=== PATIENT | male | born 1965 | race Caucasian/White ===

== ENCOUNTER → 2016-10-26 | Outpatient (CLI) | payer OTHER ==
--- NOTE | 2016-10-28 14:07 | PE ---
Nuclear medicine PET/CT HISTORY: Hodgkin's lymphoma Patient received 15.7 mCi F-18 FDG intravenously and delayed scanning was performed from the skull ba se to the mid thighs. Localization and attenuation correction CT scan was performed. Exam is compared to previous exam dated 20 April 2016 Neck and chest: No evident adenopathy. No suspicious lung nodule. Evidence of old granulomatous disea se again noted. No suspicious hypermetabolic uptake. Abdomen pelvis: No retroperitoneal adenopathy. Multiple calcifications present within the spleen. No hypermetabolic uptake. No ascites. Urinary bladder shows a thickened wall, prostate calcifications ar e present, prostate is enlarged. No inguinal adenopathy. Osseous structures: At the insertion along the level of the greater trochanter hypermetabolic uptake is present which likely is corresponding to inflammatory change, correlate for trochanteric bursitis. IMPRESSION: No suspicious hypermetabolic uptake. Correlate for left trochanteric bursitis
== END | disposition home or self-care (01) ==
LOC: RADPETMAIN 07:20
PROVIDERS: ATTEND Internal Medicine Hematology & Oncology
DX: C85.90 Non-Hodgkin lymphoma, unspecified, unspecified site (principal)
CPT/HCPCS: 78815; A9552

== ENCOUNTER 2017-07-04 18:44 | Emergency (ER) | payer OTHER ==
[2017-07-04] MEDS ORDERED: DIPH,PERTUS(ACELL)TETVAC-LF 0.5 ML VIAL IM ONE (19:21)
[2017-07-04] MEDS ORDERED: CHLOROPROCAINE 3% 30 MG/ML 20 ML VIAL MISCELLANE PRN (19:26)
--- NOTE | 2017-07-04 19:39 | XR ---
EXAMINATION TYPE: XR finger LT DATE OF EXAM: 07/04/2017 COMPARISON: NONE HISTORY: Trauma and laceration TECHNIQUE: 3 views FINDINGS: I see no fracture nor dislocation. There is no sign of a foreign body. Joint spaces appear normal. IMPRESSION: Negative left thumb exam
--- NOTE | 2017-07-04 19:52 | ED ---
General Adult HPI - General Chief complaint: Wound/Laceration Stated complaint: L hand laceration Time Seen by Provider: 07/04/17 19:00 Source: patient, RN notes reviewed Mode of arrival: ambulatory Limitations: no limitations - History of Present Illness Initial comments: This is a 52-year-old male who presents to the emergency department with chief complaint of left thumb laceration. Patient states that approximately 40 minutes prior to arrival he was using a band saw. He was making wood card holders. He states that the saw blade is recently new. He states that he cut the palmar surface of his left thumb. He states he feels like it went down to the bone. He is unsure whether he is up-to-date with his tetanus vaccination. Denies fever, chills, chest pain, shortness of breath, abdominal pain, nausea or vomiting, constipation or diarrhea, dysuria or hematuria, headache or vision changes. - Related Data Home Medications Medication Instructions Recorded Confirmed Ascorbic Acid [Vitamin C] 500 mg PO DAILY 12/07/14 05/01/16 Cholecalciferol [Vitamin D3] 400 unit PO DAILY 12/07/14 05/01/16 Fish Oil/Dha/Epa [Fish Oil 1,200 2 cap PO DAILY 12/07/14 05/03/16 mg Fish Oil] L.acidoph/B.long/L.plant/B.lac 1 tab PO DAILY 12/07/14 05/01/16 [Probiotic Acidophilus Beads] Selenium 100 mcg PO DAILY 12/07/14 05/01/16 Vitamin B Complex 1 tab PO DAILY 12/07/14 05/01/16 Zinc 50 mg PO DAILY 12/07/14 05/01/16 Omeprazole 20 mg PO DAILY 05/01/16 05/03/16 Allergies Allergy/AdvReac Type Severity Reaction Status Date / Time lidocaine Allergy Chest Pain Verified 07/04/17 18:55 PRE MED PRIOR TO ANESTHESIA AdvReac AGITATED Uncoded 07/04/17 18:55 Review of Systems ROS Statement: Those systems with pertinent positive or pertinent negative responses have been documented in the HPI. ROS Other: All systems not noted in ROS Statement are negative. 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 Past Psychological History: No Psychological Hx Reported Smoking Status: Former smoker Past Alcohol Use History: None Reported Past Drug Use History: None Reported - Past Family History Father Family Medical History: CVA/TIA, Diabetes Mellitus Mother Family Medical History: Cancer Additional Family Medical History / Comment(s): HEART PROBLEMS General Exam - General Exam Comments Initial Comments: General: Awake and alert, well-developed; in no apparent distress. is at bedside. HEENT: Head atraumatic, normocephalic. Pupils are equal, round and reactive to light. Extraocular movements intact. Neck: Supple. Normal ROM. Cardiovascular: Regular rate and rhythm. No murmurs, rubs or gallops. Chest symmetrical. Respiratory: Lungs clear to auscultation bilaterally. No wheezes, rales or rhonchi. Normal respiratory effort with no use of accessory muscles. Musculoskeletal: Patient has normal active and passive range of motion of left thumb. Sensation is intact. Radial pulses are 2+ equal and palpable bilaterally. Skin: Isabel[place], warm and dry without rashes. There is an approximately 2.0 cm crescent-shaped laceration at the palmar surface of the left thumb overlying the IP joint. Bleeding is controlled. Neurological: Alert and oriented x3. CN II-XII grossly intact. Speech is fluent and answers are appropriate. No focal neuro deficits. Psychiatric: Normal mood and affect. No overt signs of depression or anxiety noted. Limitations: no limitations Course Vital Signs 07/04/17 07/04/17 18:52 20:33 Temperature 97.2 F L 97.7 F Pulse Rate 80 84 Respiratory 18 16 Rate Blood Pressure 137/80 137/87 O2 Sat by Pulse 95 98 Oximetry Procedures - Laceration Laceration #1 Consent Obtained: verbal consent Indication: laceration Site: hand (left thumb ) Size (cm): 2 Description: flap (crescent-shaped) Depth: simple, single layer Anesthesia Technique: nerve block (nesacaine ) Pre-repair: wound explored, irrigated extensively, deep structures intact Type of Sutures: nylon Size of Sutures: 5-0 Number of Sutures: 5 Technique: simple, interrupted Patient Tolerated Procedure: well, no complications Medical Decision Making - Medical Decision Making This is a 51-year-old male who presents to the emergency department with chief complaint of left thumb laceration. X-ray revealed no acute abnormalities. Patient has full range of motion and is neurovascularly intact. 5 sutures were placed and patient tolerated well without complication. Patient stated that he has a documented ALLERGY to lidocaine. I spoke with pharmacy who recommended the use of Nesacaine. Pharmacist says that Nesacaine is used often in the [employer] with patients who have a lidocaine ALLERGY. Nesacaine was used and patient tolerated well. No signs of ALLERGIC reaction. Patient was made up-to-date with tetanus vaccination. I offered antibiotics to patient to prevent any infection and he declines, stating that the blade was fairly new. Strongly advised him to return to the emergency department if any signs of infection should arise. Patient was made up-to-date with his tetanus vaccination. He will be discharged home. Recommended removal of sutures in 10-14 days either here at the emergency department or with his primary care provider. Patient is in agreement with plan and voiced understanding. All questions were answered. - Radiology Data X-ray finger left thumb findings: I see no fracture no dislocation. There is no sign of a foreign body. Joint spaces appear normal. Impression: Negative left thumb exam. Disposition Clinical Impression: Finger laceration Disposition: HOME SELF-CARE Condition: Good Instructions: Finger Laceration (ED) Additional Instructions: Please have sutures removed in 10-14 days either here at the emergency department or with your primary care provider. Please monitor for any signs of infection including increased tenderness, warmth or redness. May take Motrin or Tylenol as needed for pain and inflammation. Please follow up with primary care provider within 1-2 days. Return to emergency department if symptoms should worsen or any concerns arise. Referrals: Christoph Hernandez MD [Primary Care Provider] - 1-2 days Time of Disposition: 20:24
[2017-07-04 20:34] VITALS: BP 137/87; PULSE 84; RESP 16; TEMP 97.7
== END 2017-07-04 20:33 | disposition home or self-care (01) ==
LOC: EC 18:44
DX: S61.012A Laceration without foreign body of left thumb without damage to nail, initial encounter (principal); K21.9 Gastro-esophageal reflux disease without esophagitis; I10 Essential (primary) hypertension; Z87.891 Personal history of nicotine dependence; Z79.899 Other long term (current) drug therapy; Z88.8 Allergy status to other drugs, medicaments and biological substances; Z23 Encounter for immunization; W31.2XXA Contact with powered woodworking and forming machines, initial encounter
CPT/HCPCS: 73140; 90715; 99283; 12001; 90471; J2400

== ENCOUNTER → 2017-10-29 | Outpatient (CLI) | payer BC ==
--- NOTE | 2017-10-30 16:42 | CT ---
EXAMINATION TYPE: CT ChestAbdPelvis w con DATE OF EXAM: 10/29/2017 COMPARISON: PET/CT CT 10/26/2016, 04/20/2016 HISTORY: 51-year-old male History of lymphoma, observe for mets. TECHNIQUE: Contiguous axial scanning of the chest, abdomen, and pelvis performed with IV Contrast, pa tient injected with 100 mL of Isovue 300. Delayed kidney images could not be obtained as the patient began vomiting 1 minute after the initial scan. Coronal/sagittal reconstructions performed. CT DLP: Unable to generate due to technical error Automated exposure control for dose reduction was used. FINDINGS: CHEST: Heart is normal size without pericardial effusion. Aorta normal caliber with conventional vessel branching anatomy. Calcified nonenlarged mediastinal lymph nodes are present. No thoracic lymphadenopathy by CT size cri teria. Stable prominent subpleural fat along the peripheral lung bases with some adjacent pleural parenchyma l scarring. Calcified granuloma anterior left upper lobe. Mild diffuse bronchial wall thickening sugg estive of bronchitis or chronic asthma. No consolidation or pleural effusion. ABDOMEN: Tiny hiatal hernia. No focal liver lesion or biliary ductal dilatation. Portal venous system is patent. Gallbladder, adrenal glands, kidneys, and pancreas appear within normal limits. Multiple calcified gr anulomas in the spleen. Small anterior splenule. No dilated small bowel, free fluid, or free air. Scattered nonenlarged mesenteric lymph nodes are present. No mesenteric or retroperitoneal lymphadeno elpidio. Mild stool burden. No pericolonic inflammatory change. Pelvis: Bladder is urine distended. Prostate gland measures 4.6 cm wide with central calcifications. No abnor mal fluid collection in the pelvis or pelvic lymphadenopathy seen. Bones: Mild degenerative changes of the hips. Degenerative changes at the SI joints and degenerative disc di sease L5-S1. IMPRESSION: 1. STABLE EXAM. NO SUSPICIOUS LYMPHADENOPATHY TO SUGGEST RECURRENT DISEASE. 2. PRIOR GRANULOMATOUS DISEASE.
== END | disposition home or self-care (01) ==
LOC: RADCTMAIN 16:45
PROVIDERS: ATTEND Internal Medicine Hematology & Oncology
DX: C81.10 Nodular sclerosis Hodgkin lymphoma, unspecified site (principal); Z88.4 Allergy status to anesthetic agent
CPT/HCPCS: 71260; 74177; Q9967

== ENCOUNTER → 2018-09-09 | Outpatient (CLI) | payer BC ==
--- NOTE | 2018-09-09 17:12 | CT ---
EXAMINATION TYPE: CT ChestAbdPelvis w con DATE OF EXAM: 09/09/2018 INDICATION: Follow up for lymphoma. COMPARISON: 10/29/2017 CT DLP: 1307.5 mGycm CONTRAST: Performed with Oral Contrast and with IV Contrast, patient injected with 100ml mL of Isovue 300. TECHNIQUE: Axial images at 5 mm thick sections. Reconstructed images in the coronal plane. Delayed images through the kidneys. FINDINGS: CT CHEST: Portion of the thyroid visualized is normal. There is a 1.2 cm calcification in the anterior superior left upper lobe. This was present previously . No enlarged mediastinal or hilar adenopathy is evident. Few calcified lymph nodes may be present. The ascending aorta diameter at the level of the main pulmonary artery is 3.4 cm. The main pulmonary artery diameter at the bifurcation is 2.[address] ABDOMEN: No suspicious periaortic or retrocaval adenopathy is evident. No celiac axis or portal ad enopathy is evident. Liver: Normal Spleen: Possible calcified granuloma are within the spleen Pancreas: Normal Adrenal glands: The adrenal glands are normal. Gallbladder: Normal Kidneys: No masses are evident. No hydronephrosis is present. No cysts are present. Delayed images were obtained through the kidneys, which remain unremarkable. Aorta: Vascular calcification is within the aorta. Inferior vena cava: Normal. CT PELVIS: No suspicious obturator canal or iliac adenopathy is evident. Loops of bowel within the abdomen and pelvis are normal. There are loops of bowel which are incom pletely distended or lack oral contrast limiting their evaluation. Some fecal debris is within the co speedy. Appendix: Not identified. Urinary bladder: Normal. Genitourinary structures: Prostate contains calcification. Osseous structures: No suspicious lytic or sclerotic lesions. IMPRESSIONS: 1. No significant enlarged adenopathy is evident.
== END | disposition home or self-care (01) ==
LOC: RADCTMAIN 12:43
PROVIDERS: ATTEND Internal Medicine Hematology & Oncology
DX: C81.10 Nodular sclerosis Hodgkin lymphoma, unspecified site (principal); Z88.4 Allergy status to anesthetic agent
CPT/HCPCS: 71260; 74177; Q9967

== ENCOUNTER → 2019-09-18 | Outpatient (CLI) | payer BC ==
--- NOTE | 2019-09-20 08:37 | CT ---
EXAMINATION TYPE: CT ChestAbdPelvis w con DATE OF EXAM: 09/18/2019 COMPARISON: 09/09/2018 HISTORY: Hodgkins disease CT DLP: 2160 mGycm CONTRAST: CT scan of the chest, abdomen and pelvis is performed with Oral Contrast and with IV Contrast, patien t injected with 100 ml mL of Isovue 300. CT Chest: LUNGS: The lungs are clear and free of infiltrate or atelectasis. No pulmonary nodule or mass is det ected. Ossified granuloma left upper lobe unchanged. No pleural effusion or CT evidence of interstit ial lung disease. MEDIASTINUM: Thoracic aorta is of normal caliber. The heart is not enlarged. No evidence for media stinal mass or adenopathy. Calcified lymph nodes are redemonstrated. HILAR STRUCTURES: No evidence for mass. No hilar adenopathy is appreciated. OTHER: No significant abnormality. CONTRAST CT ABDOMEN AND PELVIS FINDINGS: LIVER/GB: No calcified gallstones. No space occupying hepatic lesion. Biliary tree is of normal ca liber. PANCREAS: No inflammation. No distinct mass. SPLEEN: No splenic enlargement. No lesion seen. Splenic granulomas identified. ADRENALS: No nodule. No thickening. KIDNEYS/BLADDER: No hydronephrosis. No nephrolithiasis. No disctinct renal mass. BOWEL: Normal appendix. Normal bowel caliber. No inflammation. GENITAL ORGANS: No gross abnormality. LYMPH NODES: No greater than 1cm abdominal or pelvic lymph nodes are appreciated. AORTA: No significant abnormality. OSSEOUS STRUCTURES: No significant abnormality is seen. OTHER: No significant additional abnormality is seen. IMPRESSION: 1. No evidence for adenopathy within the chest abdomen or pelvis.
== END | disposition home or self-care (01) ==
LOC: RADCTMAIN 09:39
PROVIDERS: ATTEND Internal Medicine Hematology & Oncology
DX: C81.10 Nodular sclerosis Hodgkin lymphoma, unspecified site (principal); Z88.4 Allergy status to anesthetic agent
CPT/HCPCS: 71260; 74177; Q9967

== ENCOUNTER → 2020-09-19 | Outpatient (CLI) | payer BC ==
[2020-09-19 10:00] LABS: African American GFR (CKD) >90 (>60 ml/min/1.73 sqM); Blood Urea Nitrogen 22 mg/dL (9-20); Non-African American GFR(CKD) >90 (>60 ml/min/1.73 sqM)
--- NOTE | 2020-09-19 11:07 | CT ---
EXAMINATION TYPE: CT ChestAbdPelvis w con DATE OF EXAM: 09/19/2020 COMPARISON: 09/18/2019 and 09/09/2018 HISTORY: 54-year-old male Lymphoma TECHNIQUE: Contiguous axial scanning of the chest, abdomen, and pelvis performed with IV Contrast, pa tient injected with 100 mL of Isovue 300. Delayed images through the kidneys were obtained. Coronal/s agittal reconstructions performed. CT DLP: 2455.2 mGycm Automated exposure control for dose reduction was used. FINDINGS: CHEST: The heart is normal size without pericardial effusion. Upper descending thoracic aorta is ectatic at 3.2 cm. Mild atherosclerotic arch calcifications. Conve ntional arch vessel branching anatomy. Calcified mediastinal and left hilar lymph nodes compatible with prior granulomatous disease. No thor acic lymphadenopathy by CT size criteria. Benign calcified granuloma anterior left upper lobe. Patchy left basilar opacity remains unchanged from 09/18/2019 suggesting pleural parenchymal scarring. There is some hazy dependent atelectasis at the right base. Otherwise, no consolidation or pleural effusion. ABDOMEN: Small hiatal hernia. Liver enlarged at 21.9 cm. No focal liver lesion or biliary ductal dilatation. Portal venous system i s patent. Gallbladder, adrenal glands, kidneys, and pancreas appear within normal limits. Numerous calcified granulomas redemonstrated within the spleen compatible with prior granulomatous di sease. No dilated small bowel, free fluid, or free air. No mesenteric or retroperitoneal lymphadenopathy. Oral contrast has progressed to the distal sigmoid. There is mild stool burden. No pericolonic inflam matory change. Mild to moderate atherosclerotic calcifications infrarenal abdominal aorta. Mild fusiform ectasia inf rarenal segment and 2.6 cm and mild ectasia proximal right common iliac artery at 1.8 cm. PELVIS: Bladder is urine distended. Patulous left inguinal canal. Central prostatic calcifications. Prostate gland measures 4.7 cm wide. Multiple pelvic phlebolith. No abnormal fluid collection in the pelvis or pelvic lymphadenopathy. BONES: Mild degenerative change of the hips. Degenerative bridging ankylosis of the bilateral SI joints. Fac et arthropathy mid to lower lumbar spine. Accentuated upper thoracic kyphosis. Anterior endplate spon dylosis mid to lower thoracic spine. Advanced degenerative disc disease L5-S1. Moderate to severe ty roforaminal stenosis on the right at L5-S1. No osseous destructive process. IMPRESSION: 1. NO SUSPICIOUS LYMPHADENOPATHY OR MASS TO SUGGEST RECURRENT LYMPHOMA. 2. EVIDENCE OF PRIOR GRANULOMATOUS DISEASE IN THE CHEST AND SPLEEN. 3. SMALL HIATAL HERNIA AND UNCHANGED HEPATOMEGALY AT 21.9 CM.
== END | disposition home or self-care (01) ==
LOC: RADCTMAIN 08:12
PROVIDERS: ATTEND Internal Medicine Hematology & Oncology
DX: Z03.89 Encounter for observation for other suspected diseases and conditions ruled out (principal); C81.10 Nodular sclerosis Hodgkin lymphoma, unspecified site; K44.9 Diaphragmatic hernia without obstruction or gangrene; R16.0 Hepatomegaly, not elsewhere classified; Z87.09 Personal history of other diseases of the respiratory system; Z87.898 Personal history of other specified conditions; Z88.4 Allergy status to anesthetic agent
CPT/HCPCS: 82565; 84520; 71260; 74177; 36415; Q9967 ×2

== ENCOUNTER → 2021-05-22 | Outpatient (CLI) | payer BC ==
--- NOTE | 2021-05-23 07:45 | US ---
EXAMINATION TYPE: US pelvic limited DATE OF EXAM: 05/22/2021 COMPARISON: NONE CLINICAL HISTORY: Pain. Ultrasound of the left groin was performed. There is no evidence for hernia mass or fluid collection. Comparison the right groin reveals no asymmetry. IMPRESSION: Negative
== END | disposition home or self-care (01) ==
LOC: RADUSWWP 10:21
PROVIDERS: ATTEND Family Medicine
DX: R10.2 Pelvic and perineal pain (principal)
CPT/HCPCS: 76857

== ENCOUNTER → 2022-10-17 | Outpatient (CLI) | payer OTHER ==
[2022-10-17 22:56] LABS: African American GFR (CKD) 114.9 (60.0-200.0); Anion Gap 11.1 mmol/L (10.00-18.00); BUN/Creat Ratio 28.63 Ratio (12.00-20.00); Blood Urea Nitrogen 22.9 mg/dL (9.0-27.0); Calcium 9.8 mg/dL (8.7-10.3); Carbon Dioxide 24.9 mmol/L (20.0-27.5); Non-African American GFR(CKD) 99.2 (60.0-200.0); Potassium 4.2 mmol/L (3.5-5.5)
== END | disposition home or self-care (01) ==
LOC: LABWHC1 15:56
PROVIDERS: ATTEND Nurse Practitioner
DX: I10 Essential (primary) hypertension (principal)
CPT/HCPCS: 36415; 80048